=== PATIENT | female | born 1970 | race Two or more races ===

== ENCOUNTER 2018-01-14 21:12 | Inpatient (IN) | payer BC ==
[~2018-01-14] VITALS: Ht 149.9 cm; Wt 70.0 kg
[2018-01-14] MEDS ORDERED: LOSA100T15 PO (21:26)
[2018-01-14] MEDS ORDERED: MORPHINE SULFATE 2 MG/1 ML DISP.SYRIN IV ONE (21:53)
[2018-01-14] MEDS ORDERED: ONDANSETRON IV *ER 4 MG/2 ML VIAL IV ONE (22:00)
[2018-01-14] MEDS ORDERED: IV NS 1000 ML 1,000 ML IV ONE ×2 (22:00→23:45)
[2018-01-14] MEDS ORDERED: PANTOPRAZOLE SODIUM IV 40 MG in IV DEXTROSE 5% 100 ML IV ONE (22:00)
--- NOTE | 2018-01-14 22:02 | NUR ---
Xray/Phlebotomy at bedside.
[2018-01-14] MEDS ORDERED: PANTOPRAZOLE SODIUM 40 MG VIAL ONE ×2 (22:07→23:58)
[2018-01-14] MEDS ORDERED: ONDANSETRON 4 MG/2 ML VIAL ONE (22:07)
[2018-01-14] MEDS ORDERED: MORPHINE SULFATE 2 MG/1 ML DISP.SYRIN ONE (22:07)
[2018-01-14 22:12] LABS: BASOPHILS % (AUTO) 0.3 % (0.0-2.0); EOSINOPHILS % (AUTO) 0.2 % (0.0-7.0); HEMATOCRIT 38.4 % (31.2-41.9); LYMPHOCYTES # (AUTO) 2.2 K/uL (20.0-40.0); MEAN CORPUSCULAR HEMOGLOBIN 28.4 uug (24.7-32.8); MEAN CORPUSCULAR HGB CONC 34 g/dL (32.3-35.6); MONOCYTES # (AUTO) 0.8 K/uL (2.0-10.0); MONOCYTES % (AUTO) 6.9 % (0.0-11.0); NEUTROPHILS # (AUTO) 8.9 K/uL (1.8-8.9); NEUTROPHILS % (AUTO) 74.6 % (38.5-71.5); PLATELET COUNT (AUTO) 181 K/uL (179-408); RED BLOOD CELL COUNT(AUTO) 4.57 MIL/uL (3.63-4.92)
--- NOTE | 2018-01-14 22:19 | NUR ---
Patient remains in bed, VSS. States her pain is improving at this time. VSS
[2018-01-14 22:30] LABS: BILIRUBIN,TOTAL 0.3 mg/dL (0.2-1.0); CREATININE 1.6 mg/dL (0.6-1.3); POTASSIUM 3.1 mmol/L (3.5-5.1); TOTAL PROTEIN, SERUM 6.4 g/dL (6.4-8.2)
--- NOTE | 2018-01-14 22:49 | NUR ---
Patient remains in bed, mother at bedside. VSS. Will continue to monitor patient.
--- NOTE | 2018-01-14 23:27 | NUR ---
manager technical training. aware of patient status. Patient ready and awaiting CT at this time.
--- NOTE | 2018-01-14 23:48 | NUR ---
Patient taken to CT at this time. VSS
--- NOTE | 2018-01-14 23:52 | NUR ---
Patient back from CT at this time. VSS. no acute distress noted.
[2018-01-15 00:31] LABS: *BILIRUBIN,URIN NEGATIVE (NEGATIVE); *BLOOD, URINE NEGATIVE (NEGATIVE); *CLARITY,URINE CLEAR (CLEAR); *COLOR,URINE YELLOW (YELLOW); *KETONES,URINE NEGATIVE (NEGATIVE); *PROTEIN,URINE NEGATIVE (NEGATIVE); *UROBILINOGEN,URINE 0.2 E.U./dl (NORMAL); LEUKOCYTE ESTERASE ,URINE NEGATIVE (NEGATIVE); NITRITE, URINE NEGATIVE (NEGATIVE); PH,URINE 8.5 (5.0-8.0); UGLUCOSE NEGATIVE (NEGATIVE)
--- NOTE | 2018-01-15 00:36 | NUR ---
ER MD reviewed plan of care with patient. Patient aware of pending inpatient admission. Per 2nd Floor Telemetry Charge Nurse Nichole, patient will go to room 207 once cleared for inpation admission.
[2018-01-15 00:40] LABS: BACTERIA,URINE NONE SEEN /HPF (NONE SEEN); RBC,URINE NONE SEEN /HPF (0-3); SQUAMOUS EPITHELIAL CELL,UR FEW /HPF (NONE SEEN); WBC,URINE NONE SEEN /HPF (0-3)
[2018-01-15 00:41] LABS: MUCUS,URINE FEW /LPF (0-FEW)
[2018-01-15] MEDS ORDERED: CIPROFLOXACIN IV 400 MG in PREMIXED 1 EACH IV ONE (01:45)
[2018-01-15] MEDS ORDERED: METRONIDAZOLE 500 MG/NS 100ML 500 MG in PREMIXED 1 EACH IV ONE (01:45)
[2018-01-15] MEDS ORDERED: IV NS 1000 ML 1,000 ML IV PRN ×2 (01:56→21:30)
[2018-01-15] MEDS ORDERED: CIPROFLOXACIN IV 400 MG in PREMIXED 1 EACH IV SCH (02:00)
[2018-01-15] MEDS ORDERED: POTASSIUM CHLORIDE 50 ML IV SCH (02:00)
[2018-01-15] MEDS ORDERED: ONDANSETRON 4 MG/2 ML VIAL IV PRN (02:00)
--- NOTE | 2018-01-15 02:00 | NUR ---
RECEIVED PT FROM ER VIA WHEELCHAIR. PT IS AWAKE, ALERT, ORIENTEDX4. PT ADMITTED TO TELE. DX: PANCREATITIS. BELONGING LIST DONE. ADMISSION PROCESS AND CARE PLAN INITIATED. RESIDENTIAL ASSESSMENT DONE. SAFETY AND COMFORT PROVIDED. CALL LIGHT WITHIN REACH. WILL CONTINUE TO MONITOR.
--- NOTE | 2018-01-15 02:07 | NUR ---
KCL cancelled by ER MD, to be given as inpatient. Pt. admitted to Telemetry , under care of Dr. Issac Stacy. Belongs List completed
[2018-01-15 02:10] VITALS: BP 131/61
[2018-01-15] MEDS: MORPHINE SULFATE 2 MG/1 ML DISP.SYRIN IV PRN ×3 (04:02→17:55)
[2018-01-15 04:22] VITALS: BP 109/69
--- NOTE | 2018-01-15 06:31 | NUR ---
PT SLEPT THROUGHOUT THE SHIFT . PT SHOWS NO SIGNS OF DISTRESS. PT VITAL SIGNS WITHIN NORMAL LIMIT. CALL LIGHT WITHIN REACH. SAFETY AND COMFORT PROVIDED. WILL ENDORSE ACCORDINGLY.
--- NOTE | 2018-01-15 07:15 | NUR ---
Received pt sleeping, easily arousable to name. Pt states pain 01/06, informed pt that pain medications would be given natalie and as scheduled. No immediate s/s of SOB. Hydration running at this time.
[2018-01-15] MEDS: PANTOPRAZOLE SODIUM 40 MG VIAL IV SCH (08:09)
[2018-01-15 08:53] LABS: BASOPHILS % (AUTO) 0.3 % (0.0-2.0); EOSINOPHILS # (AUTO) 0.1 K/uL (0.0-0.7); EOSINOPHILS % (AUTO) 0.9 % (0.0-7.0); HEMATOCRIT 34.4 % (31.2-41.9); HEMOGLOBIN 11.7 g/dL (10.9-14.3); LYMPHOCYTES # (AUTO) 2.1 K/uL (20.0-40.0); LYMPHOCYTES % (AUTO) 26.5 % (20.5-51.5); MEAN CORPUSCULAR HEMOGLOBIN 28.6 uug (24.7-32.8); MEAN CORPUSCULAR HGB CONC 34 g/dL (32.3-35.6); MEAN CORPUSCULAR VOLUME 84.1 fL (75.5-95.3); MONOCYTES # (AUTO) 0.6 K/uL (2.0-10.0); MONOCYTES % (AUTO) 7.8 % (0.0-11.0); NEUTROPHILS % (AUTO) 64.5 % (38.5-71.5); PLATELET COUNT (AUTO) 164 K/uL (179-408); RED BLOOD CELL COUNT(AUTO) 4.09 MIL/uL (3.63-4.92); WHITE BLOOD COUNT (AUTO) 7.8 K/uL (3.8-11.8)
[2018-01-15 09:18] LABS: CREATININE 1.1 mg/dL (0.6-1.3); POTASSIUM 3.2 mmol/L (3.5-5.1)
[2018-01-15] MEDS: IV NS 1000 ML 1,000 ML IV PRN ×2 (10:37→21:56)
[2018-01-15 11:15] VITALS: BP 102/56
[2018-01-15] MEDS: POTASSIUM CHLORIDE 50 ML IV SCH ×2 (12:30→13:00)
[2018-01-15] MEDS ORDERED: NORMAL SALINE IV ONE (14:30)
[2018-01-15] MEDS ORDERED: KCL IV ONE (14:30)
[2018-01-15] MEDS ORDERED: POTASSIUM CHLORIDE 40 MEQ in IV NS 1000 ML 1,000 ML IV SCH (15:00)
--- NOTE | 2018-01-15 15:00 | NUR ---
Only half a bag of Potassium chloride infused, pt stated that her arm was hurting, immediately stopped potassium infusion, called MD to inform him about pt.'s condition and asked if an order for 40meq to be infusion with hydration could be placed. stated yes and to inform Pharmacy. Pharmacy aware. An order for 0.9%NS with potassium chloride ordered and previous order for KCL 10meq times 4 bags was D/C. Pt tolerating hydration well. Noted friend/family by bedside
[2018-01-15 15:22] VITALS: BP 102/58
[2018-01-15 17:59] VITALS: BP 111/67
--- NOTE | 2018-01-15 19:20 | NUR ---
RECEIVED PT AWAKE, ALERT , ORIENTEDX4. PT SHOWS NO SIGNS OF DISTRESS. PT NO COMPLAINT OF PAIN. CALL LIGHT WITHIN REACH. BED ALARM ON AND IN LOW POSITIONS, SIDE RAILS UPX2. WILL CONTINUE TO MONITOR.
[2018-01-15 20:00] VITALS: BP 107/69
--- NOTE | 2018-01-15 21:49 | NUR ---
HANDS OFF REPORT TO KAREN BELL. PT STABLE AND SHOWS NO ACUTE DISTRESS.
[2018-01-16 04:00] VITALS: BP 117/68
[2018-01-16] MEDS: IV NS 1000 ML 1,000 ML IV PRN (05:53)
--- NOTE | 2018-01-16 06:02 | NUR ---
pt sinus parris steady in the 40s overnight. No s/s distress. Denies pain or discomfort. Remains NPO.
[2018-01-16 06:17] LABS: BASOPHILS % (AUTO) 0.4 % (0.0-2.0); EOSINOPHILS # (AUTO) 0.3 K/uL (0.0-0.7); EOSINOPHILS % (AUTO) 4.2 % (0.0-7.0); HEMATOCRIT 34.2 % (31.2-41.9); HEMOGLOBIN 11.5 g/dL (10.9-14.3); LYMPHOCYTES # (AUTO) 1.8 K/uL (20.0-40.0); LYMPHOCYTES % (AUTO) 26.4 % (20.5-51.5); MEAN CORPUSCULAR HEMOGLOBIN 28.7 uug (24.7-32.8); MEAN CORPUSCULAR HGB CONC 34 g/dL (32.3-35.6); MONOCYTES # (AUTO) 0.4 K/uL (2.0-10.0); MONOCYTES % (AUTO) 6.1 % (0.0-11.0); NEUTROPHILS # (AUTO) 4.3 K/uL (1.8-8.9); NEUTROPHILS % (AUTO) 62.9 % (38.5-71.5); PLATELET COUNT (AUTO) 161 K/uL (179-408); RED BLOOD CELL COUNT(AUTO) 4.03 MIL/uL (3.63-4.92); WHITE BLOOD COUNT (AUTO) 6.9 K/uL (3.8-11.8)
[2018-01-16 06:35] LABS: BILIRUBIN,TOTAL 0.4 mg/dL (0.2-1.0); MAGNESIUM 1.4 mg/dL (1.8-2.4); PHOSPHOROUS 3.2 mg/dL (2.5-4.9); POTASSIUM 3.8 mmol/L (3.5-5.1); TOTAL PROTEIN, SERUM 5.2 g/dL (6.4-8.2)
[2018-01-16 06:38] LABS: THYROID STIMULATING HORMONE 1.896 mIU/mL (0.358-3.740)
--- NOTE | 2018-01-16 07:26 | NUR ---
Receive pt sleeping in a supine position. Hydration running. No immediate s/s of SOB, pain, distress or discomfort noted.
[2018-01-16] MEDS: PANTOPRAZOLE SODIUM 40 MG VIAL IV SCH (08:15)
[2018-01-16] MEDS ORDERED: MAGNESIUM SULFATE/D5W 100 ML IV SCH (08:30)
[2018-01-16] MEDS ORDERED: Medication Not On Formulary EA (Losartan Potassium 100 MG) PO SCH (09:00)
[2018-01-16] MEDS ORDERED: LOSARTAN POTASSIUM 50 MG TABLET PO SCH (09:10)
[2018-01-16] MEDS: MAGNESIUM SULFATE/D5W 100 ML IV SCH ×2 (09:37→10:45)
--- NOTE | 2018-01-16 10:00 | NUR ---
Pt was able to tolerate clear liquid diet. Pt states no N/V. Pt also able to verbalize she has no pain. Pt was able to ambulate to a chair with no pain.
[2018-01-16 11:24] VITALS: BP 122/77
--- NOTE | 2018-01-16 14:45 | NUR ---
Pt stated she was able to tolerate lunch well. Pt states no N/V and no pain. Pt has discharge orders from Dr. Mendoza. Discharge papers signed by the pt as well as the personal belongings list, all items accounted for. Pharmacist was called for consultation regarding the pt.'s new prescriptions. Provided education on the pt.'s diagnoses as well on proper diet and if symptoms such arise to go to [facility]. Pt is able to understand discharge information. Pt states she would like to be discharge after dinner to make sure she has no more pain or N/V
[2018-01-16 15:36] VITALS: BP 109/64
[2018-01-16] MEDS: MORPHINE SULFATE 2 MG/1 ML DISP.SYRIN IV PRN (17:52)
--- NOTE | 2018-01-16 17:55 | NUR ---
After assessing the pt after dinner, pt stated she had abdomen pain. Pain medication given, pt stated she will call her mom to pick her up.
--- NOTE | 2018-01-16 18:59 | NUR ---
Pt was wheelchair down to lobby where family member picked her up. Pt left with all her personal belongings and discharge papers. Pt stated no pain, distress or discomfort at this time.
== END 2018-01-16 18:50 | disposition home or self-care (01) | DRG 438 ==
LOC: ER 21:13 → TELE 01-15 01:20 → MED 01-16 15:41
PROVIDERS: ATTEND Internal Medicine
DX: K85.90 Acute pancreatitis without necrosis or infection, unspecified (principal); N17.0 Acute kidney failure with tubular necrosis; D25.9 Leiomyoma of uterus, unspecified; E83.42 Hypomagnesemia; K40.90 Unilateral inguinal hernia, without obstruction or gangrene, not specified as recurrent; K42.9 Umbilical hernia without obstruction or gangrene; E87.6 Hypokalemia; E78.1 Pure hyperglyceridemia; I10 Essential (primary) hypertension
CPT/HCPCS: 36415; 70030-TC; 71045; 83690; 83735; 84100; 84443; 84703; 85025; 85610; 93005; A4663; C9113; J2270; J2405; J3475; J3480; J7030